=== PATIENT | female | born 1995 | race Caucasian/White ===

== ENCOUNTER → 2016-08-04 | Outpatient (CLI) | payer BC, OTHER ==
[~2016-08-04] MED LIST: ALBU1AER9 INH
[2016-08-08 18:34] LABS: MUMPS VIRUS ANTIBODY IGM <1:20; VARICELLA ZOS VIR IGG 1.72 Index (>=1.10); VARICELLA ZOS VIR IGM AB <=0.90 (<=0.90)
== END | disposition home or self-care (01) ==
LOC: C.LAB1850 14:37
PROVIDERS: ATTEND Family Medicine
DX: Z00.00 Encounter for general adult medical examination without abnormal findings (principal)

== ENCOUNTER → 2016-08-24 | Outpatient (CLI) | payer BC ==
[2016-08-27 17:24] LABS: MUMPS IgG VALUE 4.72
== END | disposition home or self-care (01) ==
LOC: C.LAB1850 17:08
PROVIDERS: ATTEND Family Medicine
DX: Z13.9 Encounter for screening, unspecified (principal)